=== PATIENT | male | born 1995 | race Caucasian/White ===

== ENCOUNTER 2019-06-13 20:15 | Inpatient (IN) | payer OTHER ==
[~2019-06-13] VITALS: Ht 172.7 cm; Wt 93.6 kg
[~2019-06-13 20:15] MED LIST: CITA10TA17 PO; GLU500 PO; INSU100V9; INSU3INS5 SQ; SER100 PO
[2019-06-13 20:31] VITALS: BP_SYST 134
[2019-06-13 21:20] LABS: BASOPHILS % (AUTO) 0.3 % (0.0-2.0); HEMATOCRIT 47.2 % (36-54); HEMOGLOBIN 15.5 g/dL (14.0-18.0); LYMPHOCYTES # (AUTO) 1.2 K/uL (1.0-5.5); LYMPHOCYTES % (AUTO) 10.6 % (20.5-51.5); MEAN CORPUSCULAR HEMOGLOBIN 29 pg (27-31); MEAN CORPUSCULAR HGB CONC 33 % (32-36); MEAN CORPUSCULAR VOLUME 88 fL (79.0-98.0); MONOCYTES # (AUTO) 1.8 K/uL (0.0-1.0); MONOCYTES % (AUTO) 15.8 % (1.7-9.3); NEUTROPHILS # (AUTO) 8.5 K/uL (1.8-7.7); NEUTROPHILS % (AUTO) 73.3 % (40.0-70.0); PLATELET COUNT (AUTO) 310 K/uL (130-430); RED BLOOD CELL COUNT(AUTO) 5.37 MIL/uL (4.2-6.2); RED CELL DISTRIBUTION WIDTH 13.9 % (9.0-15.0); WHITE BLOOD COUNT (AUTO) 11.5 K/uL (4.8-10.8)
[2019-06-13 21:21] LABS: BILIRUBIN,URINE 1+ (NEGATIVE); BLOOD, URINE 1+ (NEGATIVE); CLARITY/URINE CLEAR (CLEAR); COLOR,URINE YELLOW (YELLOW); GLUCOSE,URINE 3+ (NEGATIVE); KETONES,URINE 3+ (NEGATIVE); LEUKOCYTE ESTERASE ,URINE NEGATIVE (NEGATIVE); NITRITE, URINE NEGATIVE (NEGATIVE); PH,URINE 5.5 (5.0-8.0); PROTEIN URINE NEGATIVE (NEGATIVE); UROBILINOGEN,URINE 0.2 (0.2-1.0)
[2019-06-13 21:42] LABS: BACTERIA,URINE FEW /HPF (None Seen); WBC,URINE 0-3 /HPF (0-3)
[2019-06-13 21:43] LABS: MUCUS,URINE 1+ /LPF (None Seen)
[2019-06-13 22:04] LABS: POTASSIUM 4.7 mmol/L (3.5-5.1)
[2019-06-13 22:08] LABS: ALBUMIN 3.6 g/dL (3.4-4.8); CALCIUM 8.5 mg/dL (8.4-11.0); CREATININE 1.38 mg/dL (0.55-1.30); TOTAL BILIRUBIN 0.7 mg/dL (0.0-1.0)
[2019-06-13] MEDS ORDERED: NACL 0.9% 1,000 ML IV ONE (22:45)
[2019-06-13] MEDS: INSULIN REGULAR, HUMAN 100 UNITS in NS 99 ML IV ONE ×2 (23:10)
[2019-06-14] VITALS (23 sets, daily range): BP systolic 116–162
[2019-06-14] MEDS ORDERED: INSULIN REGULAR, HUMAN 10 UNITS/0.1 ML INJ IVP ONE (00:15)
[2019-06-14] MEDS ORDERED: PIPERACILLIN/TAZO 3.375 GM in NS 50 ML IV ONE (00:15)
[2019-06-14] MEDS ORDERED: PIPERACILLIN/TAZOBACTAM 3.375 GM/VIAL (ZOSYN) IV ONE (00:31)
[2019-06-14] MEDS ORDERED: NACL 0.9% 1,000 ML IV ONE (00:45)
[2019-06-14] MEDS ORDERED: MORPHINE 4 MG/ML INJ. SYRINGE IVP ONE (00:45)
[2019-06-14] MEDS ORDERED: INSULIN REGULAR, HUMAN 10 UNITS/0.1 ML INJ ONE (00:53)
[2019-06-14] MEDS: INSULIN REGULAR, HUMAN 100 UNITS in NS 99 ML IV ONE ×2 (01:12)
[2019-06-14] MEDS ORDERED: INSU100V9 SQ (01:53)
[2019-06-14] MEDS ORDERED: INSU100I4 SUBQ (01:53)
[2019-06-14] MEDS: NACL 0.9% 1,000 ML IV SCH ×3 (02:20→21:17)
[2019-06-14 02:39] LABS: CALCIUM 7.5 mg/dL (8.4-11.0); CREATININE 1.21 mg/dL (0.55-1.30); PHOSPHORUS 2.8 mg/dL (2.7-4.5); POTASSIUM 3.9 mmol/L (3.5-5.1)
[2019-06-14] MEDS ORDERED: HYDROcodone/ACETAMIN 5-325 MG TAB (NORCO/ VICODIN) PO PRN (06:30)
[2019-06-14] MEDS ORDERED: ACETAMINOPHEN 325 MG TABLET PO PRN ×2 (06:30→12:00)
[2019-06-14] MEDS: HYDROcodone/ACETAMIN 10-325 MG TAB PO PRN ×4 (08:05→21:26)
[2019-06-14] MEDS: FLU VACC TS2019(65UP)/MF59C/PF 45 MCG/0.5 ML SYRINGE I.M. PRN ×2 (10:11→13:16)
[2019-06-14] MEDS ORDERED: LORazepam 2 MG/ML VIAL IVP PRN (12:00)
[2019-06-14] MEDS ORDERED: ONDANSETRON HCL 4 MG/2 ML VIAL IVP PRN (12:00)
[2019-06-14] MEDS: INSULIN REGULAR, HUMAN 100 UNITS/ML, 10 ML VIAL (humuLIN R) SUBCUT PRN ×3 (12:42→21:14)
[2019-06-14] MEDS ORDERED: PIPERACILLIN/TAZO 3.375/DEX-IS 50 ML IV ONE (15:15)
[2019-06-14 15:45] LABS: BASOPHILS % (AUTO) 0.2 % (0.0-2.0); EOSINOPHILS % (AUTO) 0.5 % (0.0-4.0); HEMATOCRIT 39.4 % (36-54); HEMOGLOBIN 13.3 g/dL (14.0-18.0); LYMPHOCYTES # (AUTO) 1.8 K/uL (1.0-5.5); LYMPHOCYTES % (AUTO) 18.1 % (20.5-51.5); MEAN CORPUSCULAR HEMOGLOBIN 29 pg (27-31); MEAN CORPUSCULAR HGB CONC 34 % (32-36); MEAN CORPUSCULAR VOLUME 86 fL (79.0-98.0); MONOCYTES # (AUTO) 2.2 K/uL (0.0-1.0); MONOCYTES % (AUTO) 22.3 % (1.7-9.3); NEUTROPHILS # (AUTO) 5.9 K/uL (1.8-7.7); NEUTROPHILS % (AUTO) 58.9 % (40.0-70.0); PLATELET COUNT (AUTO) 247 K/uL (130-430); RED BLOOD CELL COUNT(AUTO) 4.57 MIL/uL (4.2-6.2); RED CELL DISTRIBUTION WIDTH 13.7 % (9.0-15.0)
[2019-06-14 16:03] LABS: CALCIUM 7.6 mg/dL (8.4-11.0); CREATININE 1.05 mg/dL (0.55-1.30); POTASSIUM 4.1 mmol/L (3.5-5.1)
[2019-06-14 16:09] LABS: ALBUMIN 2.7 g/dL (3.4-4.8); TOTAL BILIRUBIN 0.5 mg/dL (0.0-1.0)
[2019-06-14] MEDS ORDERED: INSULIN GLARGINE 100 UNITS/ML 10 ML VIAL SUBCUT SCH (21:00)
[2019-06-14] MEDS: INSULIN GLARGINE 100 UNITS/ML 10 ML VIAL SUBCUT SCH (21:16)
[2019-06-15] VITALS (19 sets, daily range): BP systolic 127–165
[2019-06-15] MEDS: PIPERACILLIN/TAZO 3.375/DEX-IS 50 ML IV SCH ×4 (01:30→17:23)
[2019-06-15] MEDS: HYDROcodone/ACETAMIN 10-325 MG TAB PO PRN ×4 (03:38→20:31)
[2019-06-15 06:31] LABS: HEMATOCRIT 38.9 % (36-54); HEMOGLOBIN 13.1 g/dL (14.0-18.0); MEAN CORPUSCULAR HEMOGLOBIN 29 pg (27-31); MEAN CORPUSCULAR HGB CONC 34 % (32-36); MEAN CORPUSCULAR VOLUME 86 fL (79.0-98.0); PLATELET COUNT (AUTO) 244 K/uL (130-430); RED BLOOD CELL COUNT(AUTO) 4.53 MIL/uL (4.2-6.2); RED CELL DISTRIBUTION WIDTH 13.4 % (9.0-15.0); WHITE BLOOD COUNT (AUTO) 8.6 K/uL (4.8-10.8)
[2019-06-15] MEDS: INSULIN REGULAR, HUMAN 100 UNITS/ML, 10 ML VIAL (humuLIN R) SUBCUT PRN ×3 (06:53→20:39)
[2019-06-15 07:00] LABS: ALBUMIN 2.4 g/dL (3.4-4.8); CALCIUM 7.5 mg/dL (8.4-11.0); CREATININE 0.83 mg/dL (0.55-1.30); TOTAL BILIRUBIN 0.4 mg/dL (0.0-1.0)
[2019-06-15] MEDS: NACL 0.9% 1,000 ML IV SCH ×2 (07:39→17:24)
[2019-06-15] MEDS: metFORMIN HCL 500 MG TABLET PO SCH ×2 (07:40→17:31)
[2019-06-15] MEDS: PIOGLITAZONE HCL 15 MG TABLET PO SCH (08:04)
[2019-06-15] MEDS ORDERED: PIOGLITAZONE HCL 30 MG TABLET PO SCH (09:00)
[2019-06-15 11:24] LABS: ATYPICAL LYMPHOCYTES % 1 % (0-0); BAND % (MANUAL) 23 % (0-6); BASOPHILS % (MANUAL) 0 % (0-2); EOSINOPHILS % (MANUAL) 0 % (0-7); LYMPHOCYTES % (MANUAL) 17 % (20-46); MONOCYTES % (MANUAL) 12 % (0-11)
[2019-06-15] MEDS ORDERED: POTASSIUM CHLORIDE 20 MEQ TAB.PRT.SR PO ONE (15:45)
[2019-06-15] MEDS: INSULIN GLARGINE 100 UNITS/ML 10 ML VIAL SUBCUT SCH (20:39)
[2019-06-16] VITALS: BP_SYST 138
[2019-06-16] MEDS: HYDROcodone/ACETAMIN 10-325 MG TAB PO PRN ×2 (00:28→05:32)
[2019-06-16] MEDS: PIPERACILLIN/TAZO 3.375/DEX-IS 50 ML IV SCH ×3 (00:29→11:02)
[2019-06-16] MEDS: NACL 0.9% 1,000 ML IV SCH ×2 (00:33→12:37)
[2019-06-16] MEDS: INSULIN REGULAR, HUMAN 100 UNITS/ML, 10 ML VIAL (humuLIN R) SUBCUT PRN ×2 (05:36→12:34)
[2019-06-16 07:15] LABS: BASOPHILS % (AUTO) 0.4 % (0.0-2.0); EOSINOPHILS % (AUTO) 0.4 % (0.0-4.0); HEMATOCRIT 36.3 % (36-54); HEMOGLOBIN 12.4 g/dL (14.0-18.0); LYMPHOCYTES # (AUTO) 1.5 K/uL (1.0-5.5); LYMPHOCYTES % (AUTO) 18.1 % (20.5-51.5); MEAN CORPUSCULAR HEMOGLOBIN 29 pg (27-31); MEAN CORPUSCULAR HGB CONC 34 % (32-36); MEAN CORPUSCULAR VOLUME 85 fL (79.0-98.0); MONOCYTES # (AUTO) 1.4 K/uL (0.0-1.0); MONOCYTES % (AUTO) 16.8 % (1.7-9.3); NEUTROPHILS # (AUTO) 5.3 K/uL (1.8-7.7); NEUTROPHILS % (AUTO) 64.3 % (40.0-70.0); PLATELET COUNT (AUTO) 254 K/uL (130-430); RED BLOOD CELL COUNT(AUTO) 4.27 MIL/uL (4.2-6.2); RED CELL DISTRIBUTION WIDTH 13.6 % (9.0-15.0); WHITE BLOOD COUNT (AUTO) 8.3 K/uL (4.8-10.8)
[2019-06-16 08:00] VITALS: BP_SYST 128
[2019-06-16] MEDS: PIOGLITAZONE HCL 15 MG TABLET PO SCH (08:20)
[2019-06-16] MEDS: metFORMIN HCL 500 MG TABLET PO SCH (08:20)
[2019-06-16 08:43] LABS: CALCIUM 7.6 mg/dL (8.4-11.0); CREATININE 0.78 mg/dL (0.55-1.30)
[2019-06-16 09:24] LABS: POTASSIUM 2.8 mmol/L (3.5-5.1)
[2019-06-16] MEDS ORDERED: POTASSIUM CHLORIDE 40 MEQ in NS 250 ML IV ONE (11:00)
[2019-06-16 12:51] VITALS: BP_SYST 133
[2019-06-16 15:33] VITALS: BP_SYST 133
[2019-06-16] MEDS ORDERED: SSREG SUBCUT (15:35)
[2019-06-16] MEDS ORDERED: PIOG15TA8 PO (15:35)
[2019-06-16] MEDS ORDERED: INSU100V9 SQ (15:35)
[2019-06-16] MEDS ORDERED: GLU500 PO (15:35)
[2019-06-16] MEDS ORDERED: POTASSIUM CHLORIDE 20 MEQ TAB.PRT.SR PO ONE (16:15)
[2019-06-16 16:20] VITALS: BP_SYST 129
[2019-06-16 16:24] LABS: CALCIUM 7.9 mg/dL (8.4-11.0); CREATININE 0.71 mg/dL (0.55-1.30); POTASSIUM 3.9 mmol/L (3.5-5.1)
== END 2019-06-16 17:30 | disposition home or self-care (01) | DRG 393 ==
LOC: SED 20:15 → SIC 06-14 00:41 → SMU 06-15 17:47
PROVIDERS: ADMIT Preventive Medicine Preventive Medicine/Occupational Environmental Medicine; ATTEND Preventive Medicine Preventive Medicine/Occupational Environmental Medicine
DX: I88.0 Nonspecific mesenteric lymphadenitis (principal); E10.10 Type 1 diabetes mellitus with ketoacidosis without coma; E87.1 Hypo-osmolality and hyponatremia; I47.1 Supraventricular tachycardia; K52.9 Noninfective gastroenteritis and colitis, unspecified; E87.6 Hypokalemia; E88.81 Metabolic syndrome and other insulin resistance; F12.90 Cannabis use, unspecified, uncomplicated; F31.9 Bipolar disorder, unspecified; I10 Essential (primary) hypertension; K29.70 Gastritis, unspecified, without bleeding; K21.9 Gastro-esophageal reflux disease without esophagitis; K76.0 Fatty (change of) liver, not elsewhere classified; Z79.4 Long term (current) use of insulin; Z83.3 Family history of diabetes mellitus; Z87.01 Personal history of pneumonia (recurrent); Z91.14 Patient's other noncompliance with medication regimen; Z91.19 Patient's noncompliance with other medical treatment and regimen; Z79.899 Other long term (current) drug therapy; Z87.81 Personal history of (healed) traumatic fracture
CPT/HCPCS: 36415; 36600; 71045; 80048; 80053; 81000-TC; 82803-TC; 82962; 83605; 83690-TC; 83735-TC; 83930-TC; 84100-TC; 85007; 85025; 85027; 86710; 87040-TC; 87081; 96361; 96365; 96375; 99285; J1815; J2270; J2543; J3480; J7030; J7050

== ENCOUNTER 2022-12-22 02:35 | Emergency (ER) | payer MEDICAID, OTHER ==
[~2022-12-22] VITALS: Ht 172.7 cm; Wt 95.3 kg
[~2022-12-22 02:35] MED LIST changes: -CITA10TA17 PO; -INSU100V9; +INSU100V9 SQ; -INSU3INS5 SQ; +PIOG15TA8 PO; -SER100 PO; +SSREG SUBCUT
--- NOTE | 2022-12-22 03:18 | NUR ---
Patient ambulated to H2 in stable condition.
[2022-12-22 03:20] VITALS: BP_SYST 144; PULSE 126; RESP 20; TEMP 101.1; O2SAT 96
--- NOTE | 2022-12-22 03:41 | NUR ---
Patient to Radiology for CXR via [employer].
[2022-12-22] MEDS ORDERED: NACL 0.9% 2,000 ML IV ONE (03:45)
--- NOTE | 2022-12-22 03:55 | NUR ---
SL 20 gauge placed to RAC followed with IVF 2000 ml bolus started.
[2022-12-22] MEDS ORDERED: cefTRIAXone 2 GM VIAL ONE (03:56)
--- NOTE | 2022-12-22 03:56 | NUR ---
Patient return to from Radiology.
[2022-12-22] MEDS ORDERED: LORazepam 2 MG/ML VIAL IVP ONE (04:15)
--- NOTE | 2022-12-22 04:55 | NUR ---
Patient medicated with Ativan 2 mg IVP.
--- NOTE | 2022-12-22 04:58 | NUR ---
[facility] Res[facility] at bedside. Blood obtained and specimens sent to lab.
--- NOTE | 2022-12-22 05:00 | NUR ---
Rocephine 2 Gm IVPB given.
[2022-12-22 05:15] LABS: BASOPHILS % (AUTO) 0.1 % (0.0-2.0); HEMATOCRIT 37.1 % (36-54); HEMOGLOBIN 12.3 g/dL (14.0-18.0); LYMPHOCYTES % (AUTO) 6.5 % (20.5-51.5); MEAN CORPUSCULAR HEMOGLOBIN 31 pg (27-31); MEAN CORPUSCULAR HGB CONC 33 % (32-36); MEAN CORPUSCULAR VOLUME 93 fL (79.0-98.0); MONOCYTES # (AUTO) 1.2 K/uL (0.0-1.0); MONOCYTES % (AUTO) 7.6 % (1.7-9.3); NEUTROPHILS % (AUTO) 85.8 % (40.0-70.0); PLATELET COUNT (AUTO) 262 K/uL (130-430); RED BLOOD CELL COUNT(AUTO) 3.98 MIL/uL (4.2-6.2); WHITE BLOOD COUNT (AUTO) 15.2 K/uL (4.8-10.8)
[2022-12-22] MEDS ORDERED: ACETAMINOPHEN 500 MG TABLET PO ONE (05:45)
[2022-12-22 05:48] LABS: ANION GAP 12 (5-15); CALCIUM 7.5 mg/dL (8.4-11.0); CHLORIDE 107 mmol/L (98-107); CREATININE 1.33 mg/dL (0.55-1.30); GFR AFRICAN AMERICAN 82 mL/min (>90); GLUCOSE 112 mg/dL (74-106); UREA NITROGEN, BLOOD 19 mg/dL (8-21)
[2022-12-22 05:50] LABS: BILIRUBIN,URINE NEGATIVE (NEGATIVE); CLARITY/URINE CLEAR (CLEAR); COLOR,URINE YELLOW (YELLOW); GLUCOSE,URINE NEGATIVE (NEGATIVE); KETONES,URINE NEGATIVE (NEGATIVE); LEUKOCYTE ESTERASE ,URINE NEGATIVE (NEGATIVE); NITRITE, URINE NEGATIVE (NEGATIVE); PROTEIN URINE 3+ (NEGATIVE); UROBILINOGEN,URINE 0.2 (0.2-1.0)
[2022-12-22 05:52] LABS: ALANINE AMINOTRANSFERASE 22 U/L (12-78); ALBUMIN 3.1 g/dL (3.4-4.8); ASPARTATE AMINOTRANSFERASE 16 U/L (10-37); TOTAL BILIRUBIN 0.8 mg/dL (0.0-1.0)
[2022-12-22 05:53] LABS: ALCOHOL, BLOOD < 3 mg/dL (<10)
--- NOTE | 2022-12-22 05:53 | NUR ---
No change from previous assessment except HR improved to 99 BPM, RR 16, BP 119/77.
--- NOTE | 2022-12-22 05:58 | NUR ---
Dr. Thompson at bedside discussing labs, diagnostics & Tx plan. MD will discharge patient home.
[2022-12-22 06:02] VITALS: BP_SYST 119; PULSE 98; RESP 16; TEMP 98.1; O2SAT 98
--- NOTE | 2022-12-22 06:02 | NUR ---
DCI given to patient. Patient acknowledges and understand DCI. Patient ambulated OTD in stable condition with Grandmother.
--- NOTE | 2022-12-22 06:02 | NUR ---
SL discontinued with catheter intact.
--- NOTE | 2022-12-22 06:02 | NUR ---
Patient medicated with Tylenol 1000 mg PO for DURAND 11/13.
[2022-12-22] MEDS ORDERED: ACETAMINOPHEN 500 MG TABLET ONE (06:10)
[2022-12-22 06:17] LABS: CANNABINOID, URINE POSITIVE (NEG <=50); METHAMPHETAMINES SCREEN,URINE POSITIVE (NEG <=500); URINE AMPHETAMINE POSITIVE (NEG <=500)
[2022-12-22 06:18] LABS: BARBITURATE, URINE NEGATIVE (NEG <=200); BENZODIAZEPINE, URINE NEGATIVE (NEG <=150); COCAINE, URINE NEGATIVE (NEG <=150); OPIATE, URINE NEGATIVE (NEG <=100); PHENCYCLIDINE SCREEN,URINE NEGATIVE (NEG <=25); UR TRICYCLIC ANTIDEPRESSANTS NEGATIVE (NEG <=300); URINE METHADONE NEGATIVE (NEG <=200); URINE OXYCODONE SCREEN NEGATIVE (NEG <=100); URINE PROPOXYPHENE SCREEN NEGATIVE (NEG <=300)
[2022-12-22 06:19] LABS: ACETONE, SERUM NEGATIVE (NEGATIVE)
[2022-12-22 06:22] LABS: BLOOD, URINE TRACE (NEGATIVE)
[2022-12-22 06:24] LABS: BACTERIA,URINE None Seen /HPF (None Seen); RBC,URINE 0-3 /HPF (0-3); WBC,URINE 0-3 /HPF (0-3)
== END 2022-12-22 06:02 | disposition home or self-care (01) ==
LOC: SED 02:35
DX: F15.90 Other stimulant use, unspecified, uncomplicated (principal); R51.9 Headache, unspecified; M79.609 Pain in unspecified limb; R07.9 Chest pain, unspecified; R06.02 Shortness of breath; F41.9 Anxiety disorder, unspecified; E11.9 Type 2 diabetes mellitus without complications; Z79.4 Long term (current) use of insulin; Z79.899 Other long term (current) drug therapy
CPT/HCPCS: 99285; 96365; 71046; 96361; 96375; 80307; 80053; 82009; 82550; 85025; 87040; 36415; 93005; 83605; 81000; J0696; J2060; J7030; G0482